=== PATIENT | female | born 1970 | race Caucasian/White ===

== ENCOUNTER → 2024-09-24 15:23 | Outpatient (REF) | payer BC, SELFPAY | LOC: WDC 15:23 | PROVIDERS: ATTENDING PHYSICIAN Physician Assistant Medical | DX: Z12.31 Encounter for screening mammogram for malignant neoplasm of breast (principal) | CPT/HCPCS: 77063; 77067 ==

== ENCOUNTER → 2025-01-06 17:55 | Outpatient (REF) | payer BC, SELFPAY | LOC: RAD 17:55 | PROVIDERS: ATTENDING PHYSICIAN Physician Assistant; FAMILY PHYSICIAN Physician Assistant | DX: L40.9 Psoriasis, unspecified (principal); M25.529 Pain in unspecified elbow; M54.50 Low back pain, unspecified; M79.643 Pain in unspecified hand | CPT/HCPCS: 72202; 73080; 73130 ==

== ENCOUNTER → 2025-10-14 15:17 | Outpatient (REF) | payer OTHER, SELFPAY | LOC: WDC 15:17 | PROVIDERS: ATTENDING PHYSICIAN Nurse Practitioner Family | DX: Z12.31 Encounter for screening mammogram for malignant neoplasm of breast (principal) | CPT/HCPCS: 77063; 77067 ==